=== PATIENT | male | born 1980 ===

== ENCOUNTER 2018-11-23 16:34 | Emergency (ER) | payer OTHER ==
[2018-11-23 16:52] VITALS: BP 143/82; PULSE 80; RESP 16; TEMP 98.2; O2SAT 98
--- NOTE | 2018-11-23 18:09 | ED PDOC ---
HPI: General Adult Time Seen by Provider: 11/23/18 17:21 Chief Complaint (Nursing): Allergic Reaction Chief Complaint (Provider): Allergic Reaction History Per: Patient History/Exam Limitations: no limitations Onset/Duration Of Symptoms: Days Current Symptoms Are (Timing): Still Present Additional Complaint(s): 38 year old male with no significant past medical history who is presenting to the ED for evaluation of rash onset 4 days ago. Patient states that he started noticing rash that began with one lesion on right part of abdomen that was mildly itchy which began spreading to entire abdomen, chest and arms. Patient denies any rash on face, back, or legs and admits that he went to PMD yesterday who started him on Zyrtec and clobetasol cream. He states that he has not used the cream yet and took one dose of Zyrtec with no improvement in symptoms. Patient denies any fevers, chills, eating new foods, using new lotions/soaps/detergents, and reports that one in his family has a rash. He also denies any shortness of breath, tongue swelling, or throat swelling. PMD: none provided Past Medical History Reviewed: Historical Data, Nursing Documentation, Vital Signs Vital Signs: Last Vital Signs Temp 98.2 F 11/23/18 16:47 Pulse 80 11/23/18 16:47 Resp 16 11/23/18 16:47 BP 143/82 11/23/18 16:47 Pulse Ox 98 11/23/18 16:47 - Medical History PMH: HTN - Surgical History Surgical History: No Surg Hx - Family History Family History: States: Unknown Family Hx - Social History Current smoker - smoking cessation education provided: No Alcohol: Social Drugs: Denies - Home Medications Home Medications: Ambulatory Orders Medication Instructions Recorded Famotidine [Pepcid] 20 mg PO BID 5 Days tab 11/23/18 Prednisone [Deltasone] 40 mg PO DAILY 4 Days tablet 11/23/18 - Allergies Allergies/Adverse Reactions: Allergies Allergy/AdvReac Type Severity Reaction Status Date / Time No Known Allergies Allergy Verified 11/23/18 16:47 Review of Systems ROS Statement: Except As Marked, All Systems Reviewed And Found Negative Constitutional: Negative for: Fever, Chills ENT: Negative for: Mouth Swelling, Throat Swelling Respiratory: Negative for: Shortness of Breath Skin: Positive for: Rash Physical Exam - Reviewed Nursing Documentation Reviewed: Yes Vital Signs Reviewed: Yes - Physical Exam Appears: Positive for: Non-toxic, No Acute Distress Head Exam: Positive for: ATRAUMATIC, NORMAL INSPECTION, NORMOCEPHALIC Skin: Positive for: Warm, Dry, Rash (mildly erythematous scaly raised patch right abdomen with papular rash and some urticaira throughout the chest and abdomen; pink papular rash to bilateral upper extremities) ENT: Positive for: Normal ENT Inspection Gastrointestinal/Abdominal: Positive for: Normal Exam, Soft, Other (see skin eam for rash descriptions ). Negative for: Tenderness Extremity: Positive for: Normal ROM, Other (see skin exam for rash details ). Negative for: Deformity, Swelling Neurologic/Psych: Positive for: Alert, Oriented. Negative for: Motor/Sensory Deficits - ECG O2 Sat by Pulse Oximetry: 98 (RA) Pulse Ox Interpretation: Normal Medical Decision Making Medical Decision Making: Time: 17:32 Impressiom: allergic reaction vs possible pityriasis rosea Plan: --Benadryl 50 mg PO --Pepcid 20 mg PO --Prednisone 40 mg PO 18:40 No significant improvement in rash. Advised to follow up with mail sorter and delivery for possible pityriasis rosea vs. allergic reaction. Patient is stable for discharge home. Scribe Attestation: Documented by, Alanna Armenta acting as a scribe for Cassie Lopez PA-C. Provider Scribe Attestation: All medical record entries made by the Scribe were at my direction and personally dictated by me. I have reviewed the chart and agree that the record accurately reflects my personal performance of the history, physical exam, medical decision making, and the department course for this patient. I have also personally directed, reviewed, and agree with the discharge instructions and disposition. Disposition - Clinical Impression Clinical Impression: Rash in adult, Pityriasis rosea-like skin eruption - Patient ED Disposition Is Patient to be Admitted: No - Disposition Referrals: Ritika Carranza MD [Family Provider] - Disposition: Routine/Home Disposition Time: 18:45 Condition: STABLE Additional Instructions: F/u with mail sorter and delivery for further evaluation of possible pityriasis rosea. Take Prednisone and Pepcid as prescribed. Continue Zyrtec or Benadryl as needed. Prescriptions: Famotidine [Pepcid] 20 mg PO BID 5 Days tab Prednisone [Deltasone] 40 mg PO DAILY 4 Days tablet Instructions: Skin Rash (DC) Forms: [employer] (Armenian) Print Language: SLOVENIAN
== END 2018-11-23 19:05 | disposition home or self-care (01) ==
LOC: H.ER 16:34
DX: R21 Rash and other nonspecific skin eruption (principal); L42 Pityriasis rosea; I10 Essential (primary) hypertension